=== PATIENT | male | born 1985 | race Caucasian/White ===

== ENCOUNTER → 2020-12-07 | Outpatient (CLI) | payer SELFPAY ==
[~2020-12-07] MED LIST: AUGMENTIN 875-1 EACH PO; BUSPAR 10MG10 MG PO; CELEXA40 MG PO; FLONASE 0.05% N16 GM; IBUPROFEN600 MG PO; IBUPROFEN800 MG PO; IMITREX50 MG PO; LEVOCETIRIZINE D5 MG PO; SUDAFED 60 MG T60 MG PO; TESSALON PERLE100 MG PO; ZOFRAN4 MG PO
== END ==
LOC: KOH-I 12:24
DX: M25.512 Pain in left shoulder (principal)
CPT/HCPCS: 73030

== ENCOUNTER → 2022-06-13 | Outpatient (CLI) | payer OTHER | LOC: KOH-I 14:06 | DX: M25.512 Pain in left shoulder (principal); M54.50 Low back pain, unspecified; M47.816 Spondylosis without myelopathy or radiculopathy, lumbar region | CPT/HCPCS: 72100; 73030 ==